=== PATIENT | female | born 1995 | race Caucasian/White ===

== ENCOUNTER 2019-07-03 14:37 | Emergency (ER) | payer SELFPAY ==
[~2019-07-03] VITALS: Ht 152.4 cm; Wt 62.1 kg
[2019-07-03 14:58] VITALS: Ht 152.4 cm; Wt 62.1 kg
[2019-07-03 15:30] LABS: CALCIUM 8.8 mg/dL (8.5-10.1); CARBON DIOXIDE 28.9 mmol/L (21-32); CHLORIDE SERUM 103 mmol/L (98-107); CREATININE SERUM 0.7 mg/dL (0.6-1.0); GFR1 > 60 mL/min; GLUCOSE SERUM 133 mg/dL (74-106); POTASSIUM SERUM 3.8 mmol/L (3.5-5.1); SODIUM SERUM 140 mmol/L (136-145)
[2019-07-03 15:34] LABS: ALBUMIN 4.2 g/dL (3.4-5.0); ALKALINE PHOSPHATASE 126 U/L (46-116); ALT/SGPT 21 U/L (14-59); AST/SGOT 12 U/L (15-37); BILIRUBIN TOTAL 0.5 mg/dL (0.20-1.00); TOTAL PROTEIN, SERUM 8.7 g/dL (6.4-8.2)
[2019-07-03 15:39] LABS: BASOPHIL % 0.3 % (0-2); PLATELET COUNT 387 x10^3mcL (130-400); RED CELL DISTRIBUTION WIDTH 13.4 % (11.5-14.5)
[2019-07-03 15:45] LABS: UA SPECIFIC GRAVITY 1.025 (1.005-1.035); microscopic required? YES; urine erythrocyte 2+ (NEGATIVE)
[2019-07-03 18:15] VITALS: BP 120/76
== END 2019-07-03 18:15 | disposition home or self-care (01) ==
LOC: ED 14:37
PROVIDERS: Emergency Medicine
DX: K52.9 Noninfective gastroenteritis and colitis, unspecified (principal); N39.0 Urinary tract infection, site not specified
CPT/HCPCS: 87804; J2405; J7030